=== PATIENT | female | born 1950 | race Caucasian/White ===

== ENCOUNTER 2020-04-18 06:09 | Inpatient (IN) | payer MEDICARE, OTHER ==
--- NOTE | 2020-04-15 16:36 | PREOP HP ---
DATE OF SERVICE: 04/18/2020 HISTORY OF PRESENT ILLNESS: The patient is a pleasant 69-year-old woman who is having difficulty with back pain and some pain in her right hip and buttock. She notices numbness in her right leg. I did see her in August and recommended lumbar epidural steroid injections. She had 3 injections, which only gave her relief for a short time. She said her problems really began in May after she fell. She rates her pain 6-7/10. Standing, walking, bending increases her pain. She was taking tramadol as needed to help with her pain, but discontinued it because of constipation. CURRENT MEDICATIONS: Celebrex, lisinopril, pantoprazole, rosuvastatin, meclizine, ondansetron, gabapentin, baclofen, vitamin D, stool softener, oxybutynin. PAST MEDICAL HISTORY: Arthritis, artificial joint, asthma, hypertension, heart murmur. ALLERGIES: No known drug allergies. PAST SURGICAL HISTORY: Tonsillectomy, , hysterectomy, nasal septum correction, left knee replacement, right knee replacement, torn tendon in the left foot. FAMILY HISTORY: Cancer and hypertension. SOCIAL HISTORY: Employed. . Does not smoke. Drinks alcohol 1-2 times per year. REVIEW OF SYSTEMS: A 12-point review of systems was performed and is noncontributory except that mentioned above. PHYSICAL EXAMINATION: GENERAL: Alert, pleasant, in no acute distress. HEENT: Normocephalic, atraumatic. SKIN: Warm and dry. MUSCULOSKELETAL: Lumbar paraspinal muscle bulk is normal, restricted range of motion of the lumbar spine, [id number] tenderness of the lower lumbar spine with palpation, normal range of motion of the lower extremities bilaterally. EXTREMITIES: No clubbing, cyanosis or edema. NEUROLOGIC: Alert and oriented x 3. Strength 5/5 in bilateral lower extremities, sensory was intact to light touch in the lower extremities bilaterally, reflexes were trace and symmetric in the lower extremities bilaterally except for decreased sensation with light touch involving the lateral right leg, weakly positive straight leg raising on the right, negative straight leg raising on the left, normal gait, although there was a slightly forward stooped gait. IMAGING: I reviewed a lumbar MRI scan from 09/10/2019. On that study, the principal abnormality is at L4-L5 where there is marked thickening of the ligamentum flavum and disc bulging, which is associated with severe lumbar spinal stenosis, most prominent on the right side. At L3-L4, there is ligamentum flavum thickening with canal narrowed to about 9 mm. I also reviewed lumbar flexion and extension x-rays. ASSESSMENT AND PLAN: At this point, I feel she needs a right direct laminectomy at L4-L5 to deal with the lumbar stenosis. On her lumbar flexion/extension films, there was no motion between flexion and extension; however, between neutral and flexion, there was significant anterolisthesis. I am recommending decompressive surgery plus an instrumented lumbar fusion at L4-L5. I did discuss with her the surgery including the technique and the risks involved. We also spoke about the expected postoperative course. She understands and would like to go ahead. ANAYA MORALES MD DR: CLAIRE/eliz JOB#: [id number] / [id number] FRACISCO
[2020-04-18] VITALS (9 sets, daily range): BP systolic 113–129; BP diastolic 59–71
[~2020-04-18] VITALS: Ht 160 cm; Wt 119.6 kg
[~2020-04-18 06:09] MED LIST: BACITRACIN 50,000 UNIT in IV NORMAL SALINE 1000ML BAG 1,000 ML IRR ONE; CELE200C PO; CHOL400T14 PO; CRESTOR5 MG PO; DOCU50CA9 PO; ESTR10IN VG; HYDROmorphone 2 MG/ML VIAL IVP PRN; IV RINGERS,LACTATED 1000ML 1,000 ML IV SCH; LISI-130 PO; MECL-75 PO; PANT40TA77 PO; PROCHLORPERAZINE 10 MG/2 ML VIAL. IVP PRN; SOLI5TAB2 PO; TRAM50TA PO; fentaNYL PF VIAL 100 MCG/2 ML VIAL IVP PRN
[2020-04-18] MEDS ORDERED: KETOROLAC 60 MG/2 ML VIAL. ONE (06:31)
[2020-04-18] MEDS ORDERED: GELATIN SPONGE SIZE 100. ONE (06:31)
[2020-04-18] MEDS ORDERED: THROMBIN TOPICAL 20,000 UNIT SPRAY.SYRN KIT TP ONE (06:31)
[2020-04-18] MEDS ORDERED: BUPIVACAINE-EPI 0.5%-1:200000 MPF 30 ML VIAL. ONE (06:31)
[2020-04-18] MEDS ORDERED: ROCURONIUM 50 MG/5 ML VIAL. ONE (08:31)
[2020-04-18] MEDS ORDERED: DEXAMETHASONE SOD PHOS 20 MG/5 ML VIAL. ONE (08:32)
[2020-04-18] MEDS ORDERED: LIDOCAINE 2% PF 5 ML VIAL. ONE (08:32)
[2020-04-18] MEDS ORDERED: fentaNYL PF VIAL 250 MCG/5 ML VIAL ONE (08:32)
[2020-04-18] MEDS ORDERED: REMIFENTANIL 2 MG VIAL. IV ONE (08:32)
[2020-04-18] MEDS ORDERED: PROPOFOL 10 MG/ML (20ML) VIAL. IV ONE (08:32)
[2020-04-18] MEDS ORDERED: MIDAZOLAM HCL/PF 2 MG/2 ML VIAL. ONE (08:32)
[2020-04-18] MEDS ORDERED: ONDANSETRON PF 4 MG/2 ML VIAL. ONE (08:32)
[2020-04-18] MEDS ORDERED: PROPOFOL 50 ML IV ONE ×2 (08:32→11:28)
--- NOTE | 2020-04-18 08:48 | RAD ---
EXAM: CT Lumbar Spine without IV contrast INDICATION: Reason: LUMBAR RADICULOPATHY. BRAIN LAB / Spl. Instructions: / History: TECHNIQUE: Multi-detector row CT images were obtained through the lumbar spine without the use of IV contrast. Post-processing sagittal and coronal reconstructed images were obtained for interpretation . All CT scans performed at this facility utilize dose optimization techniques as appropriate to the exam, including the following: Automated exposure control and adjustment of the mA and/or KV accordin g to patient size (this includes techniques or standardized protocols for targeted exams where dose i s indication/reason for exam). COMPARISON: None FINDINGS: The lowest fully formed disc is referred to as the L5-S1 level. ALIGNMENT: Grade 1 anterolisthesis of L4 on L5 is present. OSSEOUS: No evidence of fracture or bone destruction. DISC SPACES: At T12-L1, diffuse disc bulge and loss of height with endplate osteophytic spurring results in modera te bilateral foraminal stenosis. The central canal appears patent. At L1-L2, diffuse disc bulge and bilateral facet hypertrophy results in mild bilateral foraminal sten osis and mild flattening of the thecal sac. At L2-L3, disc space narrowing with vacuum phenomenon and mild bilateral facet hypertrophy and ligame ntum flavum thickening. Mild central canal narrowing to an AP diameter of 9 mm is seen. At L3-L4, disc osteophyte complex and left greater than right bilateral facet hypertrophy with ligame ntum flavum thickening results in at least moderate central canal narrowing and moderate left foramin al stenosis, mild right foraminal stenosis. At L4-L5, the combination of disc osteophyte complex with vacuum phenomenon, anterolisthesis and bulk y bilateral facet hypertrophy and ligamentum flavum thickening results in severe central canal stenos is. In addition, loss of height and anterolisthesis and bilateral facet hypertrophy results in modera te to severe bilateral foraminal stenosis. At L5-S1, bilateral facet hypertrophy and disc degenerative change with loss of height results in onl y mild bilateral foraminal stenosis and mild central canal narrowing. Visualized sacroiliac joints are unremarkable. SOFT TISSUES: Unremarkable. IMPRESSION: Multilevel lumbar spinal degenerative spondylosis, worst at L4-L5 where combination of disc and facet degenerative changes and anterolisthesis results in severe central canal and moderate to severe bila teral foraminal stenoses. Electronically signed by: Scott Santos MD (04/18/2020 8:46 AM) [id number]
[2020-04-18] MEDS ORDERED: PHENYLEPHRINE in 0.9% NACL PF 1 MG/10 ML SYRINGE. IV ONE (09:29)
[2020-04-18] MEDS ORDERED: REMIFENTANIL 1 MG VIAL. IV ONE (12:49)
[2020-04-18] MEDS ORDERED: ceFAZolin SODIUM IV Push 1 GM VIAL. IVP ONE ×2 (13:00→13:02)
[2020-04-18] MEDS ORDERED: DESFLURANE > 120 MINUTES IH ONE (13:56)
[2020-04-18] MEDS ORDERED: MAGNESIUM HYDROXIDE 2,400 MG/30 ML ORAL.SUSP. PO PRN (14:00)
[2020-04-18] MEDS ORDERED: 0.9 % SODIUM CHLORIDE 10 ML DISP.SYRIN. IV PRN (14:00)
[2020-04-18] MEDS ORDERED: ESTRADIOL 10 MCG VG SCH (14:00)
[2020-04-18] MEDS ORDERED: diphenhydrAMINE HCL 25 MG CAPSULE PO PRN (14:00)
[2020-04-18] MEDS ORDERED: MAG HYDROX/ALUMINUM HYD/SIMETH 30 ML ORAL.SUSP PO PRN (14:00)
[2020-04-18] MEDS ORDERED: traMADol 50 MG TABLET PO PRN ×2 (14:00)
[2020-04-18] MEDS ORDERED: CALCIUM CARBONATE 500 MG TAB.CHEW PO PRN (14:00)
[2020-04-18] MEDS ORDERED: ACETAMINOPHEN 325 MG TABLET. PO PRN (14:00)
[2020-04-18] MEDS ORDERED: ceFAZolin SODIUM IV Push 1 GM VIAL. IVP SCH (14:00)
[2020-04-18] MEDS ORDERED: METHOCARBAMOL 750 MG TABLET PO PRN (14:00)
[2020-04-18] MEDS ORDERED: NALOXONE 0.4 MG/ML VIAL. IV PRN (14:00)
[2020-04-18] MEDS ORDERED: MORPHINE SULFATE 2 MG/ML VIAL. ONE ×2 (14:15→14:31)
[2020-04-18] MEDS ORDERED: PROCHLORPERAZINE 10 MG/2 ML VIAL. ONE (14:15)
[2020-04-18] MEDS: MORPHINE SULFATE 2 MG/ML VIAL. IVP PRN ×4 (14:27→15:08)
[2020-04-18] MEDS ORDERED: MECLIZINE HCL 12.5 MG TABLET. PO PRN (15:15)
--- NOTE | 2020-04-18 15:49 | OP ---
DATE OF SURGERY: 04/18/2020 PREOPERATIVE DIAGNOSES: Spondylolisthesis and lumbar spinal stenosis L4-L5, with severe lumbar radiculopathy. POSTOPERATIVE DIAGNOSES: Spondylolisthesis and lumbar spinal stenosis L4-L5, with severe lumbar radiculopathy. OPERATION PERFORMED: 1. Lumbar laminectomy L4-L5, with decompression of dura and nerve root. 2. Posterior instrumentation L4-L5, posterolateral fusion L4-L5 with allograft and autograft bone. The operation was done with EMG monitoring, SSEP monitoring, motor evoked potentials, stimulated EMG monitoring, fluoroscopy, microscopic dissection, BrainLAB guidance. SURGEON: Wayne Morales M.D. ENGINE ROOM HELPER: CRISTOPHER Collins, assisted with the exposure, decompression, instrumentation, as well as the closure. OPERATIVE INDICATIONS: The patient is a pleasant 69-year-old who has had problems with back and predominantly right leg pain for months. She did try epidural steroid injections, which were not of significant benefit and on imaging studies, she had the problems as listed above. I have recommended a decompression plus instrumented fusion. I spoke with her about the surgery, the risks, the technique and expected postoperative course and she wished to go ahead. DESCRIPTION OF PROCEDURE: Following general endotracheal anesthesia, the patient was positioned prone on the Crispin table. Lumbar region prepped and draped in the standard fashion. CALLIE hose and AV impulse boots were applied for DVT prophylaxis. A microscope was draped. Fluoroscopy was draped and brought into the field. Monitoring was established. Ancef 2 grams was given less than 1 hour prior to initiation of the surgery. Using fluoroscopic guidance, a midline incision was made extending from superior L4 to inferior L5. I placed the BrainLAB Star on the inferior aspect of the L5 spinous process and the BrainLAB system was initialized. I then carried the paraspinal muscles laterally off the lamina and facets and exposed the transverse processes bilaterally at L4-L5 and placed self-retaining retractors. I brought in a self-retaining retractor and using the Brain[place] system, I drilled into the posterior aspect of the pedicles first on the right side and after drilling into the pedicle, followed this with a black ball, followed by ball tip probe, followed by tap on the right side, and then I covered those openings with bone wax into the left side and performed the identical procedure on this side; however, I also excoriated the lateral facets and transverse processes and packed allograft bone after I aspirated 20 mL of bone marrow from the left iliac crest. I then went to the right side and with the microscope at this time and using microscopic technique, I trimmed away the lamina at L4-L5 and then using the high-speed air drill through the microscope, I drilled down and performed a laminectomy based from the right side and also decompressed the right L5 root, performing a partial foraminotomy. I also worked quite far laterally and peeled very thickened ligamentum flavum, which was buckling and down onto the nerve roots compressing them significantly. I visualized the L4 and the L5 roots. I fully decompressed the entire region. I then excoriated the transverse processes on the right side and packed allograft and autograft bone into the gutter on the right side. The autograft bone came from the lumbar spinous processes that I removed. I then placed the pedicle screws on the right side and then rods were placed, nuts were applied and the construct was torqued sequentially. As we torqued we gently distracted. I irrigated copiously with antibiotic solution. Hemostasis was excellent throughout the operation. I closed the wound in layers with absorbable suture. The skin was closed with a 4-0 subcuticular stitch. I was quite pleased with the surgery. WAYNE MORALES MD DR: BAILEY/eliz JOB#: [id number] / [id number] FRACISCO
[2020-04-18] MEDS: PANTOPRAZOLE 40 MG TABLET.DR. PO SCH (16:30)
--- NOTE | 2020-04-18 17:01 | NUR ---
RCEIVED FROM RECOVERY. SHE IS ALERT AND ORIENTED X4. ARRIVED WITH BACKPACK WITH HER BILATERAL HEARING AIDES. DENIES PAIN DOWN THE RIGHT BUTTOCK DOWN TO CALF. DENIES NUMBNESS. STATES SHE HAS LOW BACK PAIN OR INCISIONAL PAIN. SHE HAS GOOD STRENGTRH, SENSATION AND PULSES BILATERAL LOWER EXTREMITIES.
[2020-04-18] MEDS: POTASSIUM CL 20MEQ D5-0.45NACL 1,000 ML IV SCH (17:39)
[2020-04-18] MEDS: ceFAZolin SODIUM IV Push 1 GM VIAL. IVP SCH (19:43)
[2020-04-18] MEDS: OXYBUTYNIN CHLORIDE 5 MG TABLET PO SCH (21:03)
[2020-04-18] MEDS: DOCUSATE SODIUM 100 MG CAPSULE. PO SCH (21:03)
[2020-04-18] MEDS: ATORVASTATIN CALCIUM 20 MG TABLET PO SCH (21:03)
[2020-04-18] MEDS: fentaNYL PF VIAL 100 MCG/2 ML VIAL IVP PRN (21:11)
[2020-04-19] MEDS: fentaNYL PF VIAL 100 MCG/2 ML VIAL IVP PRN ×4 (00:40→14:58)
[2020-04-19 03:00] VITALS: BP 117/67
[2020-04-19] MEDS: POTASSIUM CL 20MEQ D5-0.45NACL 1,000 ML IV SCH ×2 (03:20→16:09)
[2020-04-19] MEDS: ceFAZolin SODIUM IV Push 1 GM VIAL. IVP SCH ×2 (03:56→13:21)
[2020-04-19 07:00] VITALS: BP 147/77
[2020-04-19] MEDS: OXYBUTYNIN CHLORIDE 5 MG TABLET PO SCH ×2 (08:08→21:05)
[2020-04-19] MEDS: CHOLECALCIFEROL (VITAMIN D3) 1,000 UNIT TABLET PO SCH (08:09)
[2020-04-19] MEDS: PANTOPRAZOLE 40 MG TABLET.DR. PO SCH (08:09)
[2020-04-19] MEDS: DOCUSATE SODIUM 100 MG CAPSULE. PO SCH ×2 (08:10→21:05)
[2020-04-19] MEDS: LISINOPRIL 20 MG TABLET PO SCH (08:10)
[2020-04-19] MEDS ORDERED: DOCUSATE SODIUM 100 MG CAPSULE. PO SCH (09:00)
[2020-04-19] MEDS: ONDANSETRON PF 4 MG/2 ML VIAL. IVP PRN ×2 (09:54→18:35)
[2020-04-19 11:00] VITALS: BP 133/76
[2020-04-19] MEDS ORDERED: METH-562 PO (12:13)
[2020-04-19] MEDS ORDERED: DOCU-153 PO (12:13)
--- NOTE | 2020-04-19 12:14 | DISCH ---
DISCHARGE INSTRUCTIONS Condition on Discharge Condition on Discharge: Stable Activity After Discharge Activity Instructions for Disc: Activity as tolerated, Avoid exertion Other activity instructions: no driving for a week Bathing Instructions: Shower-keep dressing dry Lifting Instructions after Dis: No heavy lifting, No pulling or pushing, Do not lift >10 pounds Diet after Discharge Additional Diet Restrictions: resume home diet Wound Incision Care Wound/Incision Care: Ice to area for comfort Other wound/incision instructi: may remove dressing in 48 hours if dry, no soaking Contacting the DRRosario after DC Call your doctor for: Concerns you may have Follow-Up Follow up with: Dr. Morales's nurse in 2 weeks [phone] ANAYA MORALES MD Apr 19, 2020 12:14
--- NOTE | 2020-04-19 12:33 | DS ---
DATE OF DISCHARGE: 04/20/2020 DATE OF SURGERY: 04/18/2020. DISCHARGE DIAGNOSES: Spondylolisthesis and lumbar spinal stenosis, L4-L5 with severe lumbar radiculopathy. OPERATIONS PERFORMED: 1. Lumbar laminectomy, L4-L5 with decompression of dura and nerve root. 2. Posterior instrumentation, L4-L5; posterolateral fusion, L4-L5 with allograft and autograft bone. HISTORY OF PRESENT ILLNESS: The patient is a pleasant 69-year-old who had problems with back and right leg pain for months. She did try epidural steroid injections, which were not of significant benefit and on imaging studies, she had the above-mentioned problems. I recommended a decompression plus instrumented fusion. I spoke with her about the surgery, the risks, the technique and the expected postoperative course and she wished to proceed. HOSPITAL COURSE: She was admitted to the floor postoperatively where she has done well. She has been up ambulating in the room and in the halls. Physical therapy was initiated and instruction was given to her regarding her activities. Her pain is well controlled and she is in good condition to discharge home. DISCHARGE MEDICATIONS: She will resume her medications per the [facility]AD. DISCHARGE INSTRUCTIONS: She was instructed regarding incision care, activity restrictions and expectations for the next several weeks. She will follow up in our office in 2 weeks. She understands to call with any questions or concerns. ANAYA MORALES MD DR: CLAIRE/eliz JOB#: [id number] / [id number] FRACISCO
[2020-04-19 15:00] VITALS: BP 128/76
--- NOTE | 2020-04-19 15:01 | NUR ---
Patient stated to RN that pain was not controlled with PO medication. RN paged Orders received, patient still requested fentanyl d/t pain being "uncontrolled". Patient stated she does not feel she can discharge when pain is out of control. notified.
[2020-04-19] MEDS ORDERED: HYDROcodone/APAP 7.5/325MG 1 TAB TABLET PO PRN (15:45)
[2020-04-19] MEDS: HYDROcodone/APAP 7.5/325MG 1 TAB TABLET PO PRN (18:39)
[2020-04-19 19:00] VITALS: BP 111/51
[2020-04-19] MEDS: ATORVASTATIN CALCIUM 20 MG TABLET PO SCH (21:05)
[2020-04-19 23:06] VITALS: BP 87/50
[2020-04-20] MEDS: ONDANSETRON PF 4 MG/2 ML VIAL. IVP PRN ×3 (00:36→12:38)
[2020-04-20] MEDS: HYDROcodone/APAP 7.5/325MG 1 TAB TABLET PO PRN ×3 (00:40→12:38)
[2020-04-20 03:10] VITALS: BP 100/55
[2020-04-20] MEDS: POTASSIUM CL 20MEQ D5-0.45NACL 1,000 ML IV SCH (06:00)
[2020-04-20 07:23] VITALS: BP 118/54
[2020-04-20] MEDS: DOCUSATE SODIUM 100 MG CAPSULE. PO SCH (09:46)
[2020-04-20] MEDS: OXYBUTYNIN CHLORIDE 5 MG TABLET PO SCH (09:46)
[2020-04-20] MEDS: CHOLECALCIFEROL (VITAMIN D3) 1,000 UNIT TABLET PO SCH (09:46)
[2020-04-20] MEDS: PANTOPRAZOLE 40 MG TABLET.DR. PO SCH (09:46)
[2020-04-20] MEDS: LISINOPRIL 20 MG TABLET PO SCH (09:47)
[2020-04-20 11:01] VITALS: BP 109/52
[2020-04-20 15:02] VITALS: BP 112/61
--- NOTE | 2020-04-20 15:59 | NUR ---
pt is discharged home with self care at 1555 via wheelchair via MARISA Nieto. pt is in stable condition. pt has all belongings with her. pt received discharge instructions and prescriptions and stated she had no further questions for me. instructed on how to do dressing changes at home and he stated he had no questions for me. sent home supplies for dressing changes and called and set up appointment with dr diaz may 06 at 1100.
--- NOTE | 2020-04-21 09:10 | PATHOLOGY ---
[facility] Accession Number: [id number] . 01 Material submitted: . vertebral column - LUMBAR DECOMPRESSION . 01 Clinical history: . LUMBAR STENOSIS,SPONDYLOLISTHESIS RADICULOPATHY LUMBAR LAMINECTOMY L4-5 ANTERIOR POSTERIOR INTERBODY FUSION L4-4 POST LATERAL FUSION POST INSTR. L4-5 . 02 Diagnosis: Segments of fibrocartilaginous and fibroadipose tissue and bone, lumbar decompression: - Degenerative changes of fibrocartilaginous tissue. (JPM:marti; 04/20/2020) S 04/20/2020 1742 Local . 02 Comment: There is no evidence of an acute inflammatory process or malignancy. (JPM:marti; 04/20/2020) . 02 Electronically signed: . Guido Jane MD, Pathologist NPI- [id number] . 01 Gross description: . The specimen is received in formalin, labeled "Mayra Dayana, lumbar decompression". Received are multiple segments of bone admixed with gritty material measuring 3.8 x 3.7 x 1.1 cm in aggregate dimensions. The specimen is submitted representatively in cassette A1, following decalcification. (CAA; 04/19/2020) QAC/QAC 04/19/2020 1119 Local . 02 Pathologist provided ICD-10: M99.73, M54.16 . 02 CPT . 318714, 380600 Specimen Comment: A courtesy copy of this report has been sent to [phone] Specimen Comment: Report sent to Specimen Comment: A duplicate report has been generated due to demographic updates. Performed at: [facility] [address], [place], [place] [id number] MD Thierry Garcia MD Phone: [phone] Performed at: [id number] [place], [place] [id number] MD Guido Jane MD Phone: [phone]
== END 2020-04-20 15:55 | disposition home or self-care (01) | DRG 460 ==
LOC: OPSVCIP 06:09 → 4 NORTH 15:33
PROVIDERS: ADMIT Neurological Surgery; ATTEND Neurological Surgery
PROC: 01NB0ZZ Release Lumbar Nerve, Open Approach (ICD-10-PCS; 2020-04-18)
PROC: 4A11X4G Monitoring of Peripheral Nervous Electrical Activity, Intraoperative, External Approach (ICD-10-PCS; 2020-04-18)
PROC: 0SG0071 Fusion of Lumbar Vertebral Joint with Autologous Tissue Substitute, Posterior Approach, Posterior Column, Open Approach (ICD-10-PCS; principal; 2020-04-18 08:30)
DX: M48.061 Spinal stenosis, lumbar region without neurogenic claudication (principal); M54.16 Radiculopathy, lumbar region; M43.16 Spondylolisthesis, lumbar region; I10 Essential (primary) hypertension; J45.909 Unspecified asthma, uncomplicated; K59.00 Constipation, unspecified; M19.90 Unspecified osteoarthritis, unspecified site; Z96.653 Presence of artificial knee joint, bilateral; Z82.49 Family history of ischemic heart disease and other diseases of the circulatory system; Z90.710 Acquired absence of both cervix and uterus; Z84.89 Family history of other specified conditions
CPT/HCPCS: 36415; 72131; 76000; 80053; 85025; 85610; 85730; 86850; 86900; 86901; 87641; 88304; 88311; 93005; C1713; C9362; J0690; J0780; J1100; J1885; J2250; J2270; J2370; J2405; J2704; J3010; J3480; J3490; J7030; J7120; U0003; 97530-GP; G0378